=== PATIENT | female | born 1970 | race Caucasian/White ===

== ENCOUNTER 2019-03-27 20:00 | Outpatient (CLI) | payer OTHER, SELFPAY | END 2019-03-27 20:01 | disposition home or self-care (01) | LOC: SLEEP 03-28 12:02 | PROVIDERS: Family Provider Family Medicine; Visit Provider Family Medicine | DX: G47.33 Obstructive sleep apnea (adult) (pediatric) (principal) | CPT/HCPCS: 95810; 95811 ==

== ENCOUNTER 2019-07-15 12:29 | Emergency (ER) | payer SELFPAY ==
[2019-07-15 12:39] VITALS: BP 136/56; PULSE 81; RESP 14; TEMP 36.4; O2SAT 97; BMI 35.9
--- NOTE | 2019-07-15 13:26 | W.ED.ALLEREA ---
HPI - Allergic Reaction General: Chief complaint: Allergic Reaction Stated complaint: poss allergic reaction Time Seen by Provider: 07/15/19 13:17 History of Present Illness: HPI narrative: 49-year-old female with complaint of allergic reaction swelling in the right eye and rash on the left anterior side of the neck no difficulty breathing or swallowing this started about 3 to 4 days ago. She denies any difficulty breathing or swallowing she does not exactly know what she might have gotten into that triggered this. She has had similar reactions in the past. Associated symptoms: Deny abdominal pain, nausea or vomiting Review of Systems Const: Denies: fever, chills, body aches, change in appetite, fatigue or malaise ENMT: Denies: throat pain, ear pain, nasal discharge or nasal congestion Card: Denies: chest pain, edema, shortness of breath on exertion or shortness of breath when lying down Resp: Denies: shortness of breath, productive cough or non-productive cough GI: Denies: abdominal pain, nausea, vomiting, vomiting blood, coffee grounds in vomit, diarrhea, constipation, bloating, blood in stool or black tarry stool : Denies: flank pain, difficulty urinating, painful urination, urinary frequency or urinary urgency Skin/Breast: Denies: rash or itching PFSH ED PFSH: Social History Smoking and tobacco status: never smoked Alcohol intake: never Physical Exam Const: COMMON NORMALS: no apparent distress GENERAL APPEARANCE: cooperative and comfortable ORIENTATION/CONSCIOUSNESS: Yes awake, Yes oriented to person, Yes oriented to place and Yes oriented to time HENMT: COMMON NORMALS: normocephalic, head/scalp atraumatic, hearing grossly normal bilaterally, external ears normal, EAC's normal, TM's normal bilaterally, nasal mucous membranes and turbinates normal, moist oral mucous membranes and oropharynx normal HEAD & SCALP: normocephalic and atraumatic NOSE: nasal mucous membranes and turbinates normal EXTERNAL EAR: Yes external ears normal EXTERNAL AUDITORY CANAL: EAC's normal TYMPANIC MEMBRANE: TM's normal bilaterally Eye: COMMON NORMALS: PERRL, EOMs intact bilaterally, conjunctivae normal and no scleral icterus CONJUNCTIVA: Yes conjunctivae normal PUPIL: Yes PERRL Neck/C-Spine: COMMON NORMALS: full ROM, no lymphadenopathy, supple and no JVD Lymph: LYMPHATIC: no lymphadenopathy noted and no lymphedema noted Resp: COMMON NORMALS: normal respiratory effort, no retractions, no use of accessory muscles and clear to auscultation bilaterally AUSCULTATION: clear to auscultation bilaterally Cardio: COMMON NORMALS: no JVD, regular rate, regular rhythm and no murmurs RATE: regular rate RHYTHM: regular rhythm GI: COMMON NORMALS: soft to palpation and no hepatosplenomegaly AUSCULTATION: Yes normoactive bowel sounds PALPATION: Yes soft, No tender, No guarding and Yes no hepatosplenomegaly Extremity: COMMON NORMALS: normal to inspection, normal capillary refill, no clubbing, cyanosis or edema, no calf tenderness and no pedal edema Neuro: SENSORIUM/ORIENTATION: Yes oriented to person, Yes oriented to place and Yes oriented to time Skin: NARRATIVE SKIN EXAM: Moderate swelling of the right lower eyelid sclera conjunctiva clear there is no occlusion of the eyes she is able still to open it and see through it. There is a little bit of indurated rash with no vesicles on the left side of the neck anteriorly no other areas of skin rash. Course Vital Signs: Vital signs: Vital Signs Temperature 97.6 F 07/15/19 12:39 Pulse Rate 97 07/15/19 13:53 Respiratory Rate 17 07/15/19 13:53 Blood Pressure 152/74 07/15/19 13:53 Pulse Oximetry 98 07/15/19 13:53 MDM - Allergic Reaction MDM Narrative: Medical decision making narrative: Start oral steroid taper tomorrow hydroxyzine PRN follow-up as needed Discharge Plan Discharge Patient Disposition: Home, Self-Care Clinical Impression: Allergic reaction Condition: Stable Prescriptions: New Medrol (Jeffrey) 4 mg tablets,dose pack See Rx Instructions .ROUTE .COMPLEX Qty: 21 RF: 0 hydroxyzine HCl 25 mg tablet 25 mg PO Q8H PRN (Reason: itching) Qty: 14 RF: 0 No Action (DME) CPAP - AUTO TITRATING 5-9CM Qty: 1 RF: 0 levothyroxine 50 mcg capsule 50 mcg PO DAILY Qty: 30 RF: 0 omeprazole 20 mg capsule,delayed release(DR/EC) 20 mg PO DAILY Qty: 30 RF: 0 meloxicam 15 mg tablet 15 mg PO DAILY Qty: 30 RF: 0 citalopram [Celexa] 40 mg tablet 40 mg PO DAILY Qty: 30 RF: 0 gabapentin 300 mg capsule 300 mg PO TID Qty: 90 RF: 0 Discharge Orders: Discharge Order (Routine); Ordered 07/15/19 Ordered By: Akbar Valencia Referrals: Donna Peterson DO [Primary Care Provider] - Discharge Diet: Usual diet Discharge Activity: Increase activity as tolerated Discharge Date/Time: 07/15/19 13:58 Print Language: Kyrgyz Coding Level of Care Code ED Network Systems Integrator for Marvin Lee
[2019-07-15 13:53] VITALS: BP 152/74; PULSE 97; RESP 17; O2SAT 98
== END 2019-07-15 13:58 | disposition home or self-care (01) ==
PROVIDERS: Emergency Provider Family Medicine; PCP Family Medicine
DX: T78.40XA Allergy, unspecified, initial encounter (principal)
CPT/HCPCS: 12345; 96374; 99281; 99283; J2930

== ENCOUNTER 2020-09-03 12:28 | Emergency (ER) | payer SELFPAY ==
[2020-09-03 13:10] VITALS: BP 120/59; PULSE 101; RESP 18; TEMP 37.3; O2SAT 96; BMI 36.0
--- NOTE | 2020-09-03 13:18 | XRR_ITS ---
PROCEDURE INFORMATION: Exam: XR Chest Exam date and time: 09/03/2020 1:18 PM Age: 50 years old Clinical indication: Cough and shortness of breath; Patient HX: Covid precautions; Cp; Body aches; Sore throat; Additional info: Cough shortness of breath TECHNIQUE: Imaging protocol: XR of the chest. Views: 1 view. COMPARISON: [place] Chest 1 [place] [id number] 11/04/2018 3:10 PM FINDINGS: Lungs: No consolidation. 1 cm right upper lobe nodule. Pleural spaces: Unremarkable. No pleural effusion. No pneumothorax. Heart/Mediastinum: Unremarkable. No cardiomegaly. Bones/joints: No acute findings. XR/XR chest 1V portable [id number] IMPRESSION: 1 cm right upper lobe nodule, recommend follow-up chest CT.
[2020-09-03 13:37] VITALS: BP 109/59; PULSE 79; RESP 20; O2SAT 96
[2020-09-03] MEDS: sodium chloride 0.9% 1,000 ML 150 ML IV (13:49)
--- NOTE | 2020-09-03 14:02 | W.ED.COVID ---
HPI - COVID General: Chief Complaint: COVID symptoms Stated Complaint: covid symptoms Time Seen by Provider: 09/03/20 13:18 Triage information: Has fever, cough or shortness of breath. No known COVID + exposure last 14 days History of Present Illness: HPI Narrative: 50-year-old female presents emergency room complaining of cough for the last 4 days getting progressively worse decreased appetite headache myalgias back pain with nausea vomiting and some diarrhea. She denies any dysuria urgency or frequency low-grade fever. She has previously had her Covid vaccination. Prior covid testing: no COVID 19 common symptoms: positive fever(s), chills, cough, non-productive cough, dyspnea, fatigue, body aches, headache(s), nasal congestion, nausea, vomiting and diarrhea COVID 19 other sytmptoms: negative chest pain or requiring oxygen Pertinent comorbid conditions: obesity Treatment prior to arrival: none COVID Results: Nasal/Oral Coronavirus 2019 PCR Pending 09/03/20 13:25 09/03/20 Review of Systems Const: Reports: fever(s), chills, body aches and fatigue ENMT: Reports: nasal congestion Card: Denies: chest pain, edema or dyspnea on exertion Resp: Reports: dyspnea and non-productive cough GI: Reports: nausea, vomiting and diarrhea : Denies: flank pain, difficulty voiding, dysuria, urinary frequency or urinary urgency Skin/Breast: Denies: rash or pruritus Neuro: Reports: headache(s) [facility] ED PFSH: Medical History (Updated 09/03/20 @ 14:07 by Akbar Valencia DO) Chronic low back pain Depression Generalized convulsive epilepsy with intractable epilepsy Hypothyroid JOHANNA (obstructive sleep apnea) Other iron deficiency anemias Surgical History H/O: hysterectomy History of cholecystectomy History of thumb surgery History of tonsillectomy Family History Other Cancer Dementia Diabetes Hypertension Multiple sclerosis Stroke Thyroid disease Social History Smoking and tobacco status: never smoked Alcohol intake: never Physical Exam Const: COMMON NORMALS: no acute distress GENERAL APPEARANCE: cooperative and comfortable ORIENTATION/CONSCIOUSNESS: Yes awake, Yes oriented to person, Yes oriented to place and Yes oriented to time HENMT: COMMON NORMALS: normocephalic, atraumatic, hearing grossly normal bilaterally and external ears normal HEAD & SCALP: normocephalic and atraumatic EXTERNAL EAR: Yes external ears normal Neck/C-Spine: COMMON NORMALS: no JVD Resp: COMMON NORMALS: normal respiratory effort, No retractions, No use of accessory muscles and clear to auscultation bilaterally AUSCULTATION: clear to auscultation bilaterally Cardio: COMMON NORMALS: no JVD, regular rate, regular rhythm and No murmurs present (Cardio) RATE: regular rate RHYTHM: regular rhythm GI: COMMON NORMALS: Soft to palpation and No hepatosplenomegaly present AUSCULTATION: Yes normoactive bowel sounds PALPATION: Yes Soft to palpation, No Tenderness to palpation present (GI), No Guarding due to palpation present (GI) and Yes No hepatosplenomegaly present Extremity: COMMON NORMALS: normal to inspection, capillary refill normal, no clubbing, cyanosis or edema, no calf tenderness and no pedal edema Neuro: SENSORIUM/ORIENTATION: Yes oriented to person, Yes oriented to place and Yes oriented to time Skin: COMMON NORMALS: no rashes or lesions noted GENERAL SKIN EXAM: no rashes or lesions noted Course Vital Signs: Vital signs: Vital Signs Temperature 99.2 F 09/03/20 13:10 Pulse Rate 79 09/03/20 13:37 Respiratory Rate 20 H 09/03/20 13:37 Blood Pressure 109/59 09/03/20 13:37 Pulse Oximetry 96 09/03/20 13:37 MDM - COVID MDM Narrative: Medical decision making narrative: Focal symptoms of Covid. Patient was immunized she did complete her last immunization approximately 6 weeks ago. Still suspect she may have Covid she is very mildly symptomatic. She is given IV fluids here and is feeling somewhat better. We will go ahead and discharge her home supportive cares self monitor oxygen saturations maintains a quarantine until results are back. Discussed monoclonal antibodies with her she does wish to proceed with those if she were to test positive. COVID Results: Nasal/Oral Coronavirus 2019 PCR Pending 09/03/20 13:25 09/03/20 Discharge Plan Discharge Patient Disposition: Home Clinical Impression: Viral infection Condition: Stable Prescriptions: No Action (DME) CPAP - AUTO TITRATING 5-9CM Qty: 1 RF: 0 omeprazole 20 mg capsule,delayed release(DR/EC) 20 mg PO DAILY Qty: 30 RF: 0 meloxicam 15 mg tablet 15 mg PO DAILY Qty: 30 RF: 0 citalopram [Celexa] 40 mg tablet 40 mg PO DAILY Qty: 30 RF: 0 gabapentin 300 mg capsule 300 mg PO TID Qty: 90 RF: 0 levothyroxine 50 mcg capsule 50 mcg PO DAILY Qty: 14 RF: 0 Medrol (Jeffrey) 4 mg tablets,dose pack See Rx Instructions .ROUTE .COMPLEX Qty: 21 RF: 0 hydroxyzine HCl 25 mg tablet 25 mg PO Q8H PRN (Reason: itching) Qty: 14 RF: 0 Discharge Orders: Discharge ED (Routine); Ordered 09/03/20 Ordered By: Akbar Valencia Referrals: Donna Peterson DO [Primary Care Provider] - Discharge Diet: Usual diet Discharge Activity: Resume usual activity Patient Instructions: Opioid Safety Activity Restrictions/Additional Instructions: Maintain self quarantine until Covid results return. Coding Level of Care Code ED Pet Walker for Chg Fwd Exam Comprehensive
[2020-09-03 14:20] VITALS: BP 120/70; PULSE 87; RESP 16; O2SAT 96
[2020-09-04 13:53] LABS: Coronavirus Test Green County Not Detected
--- NOTE | 2020-09-05 14:14 | PC.NURSE ---
pt notified of negative COVID results at 0840
== END 2020-09-03 14:21 | disposition home or self-care (01) ==
PROVIDERS: Emergency Provider Family Medicine; PCP Family Medicine
DX: B34.9 Viral infection, unspecified (principal); Z20.822 Contact with and (suspected) exposure to COVID-19
CPT/HCPCS: 71045; 87635; 99283; J7030

== ENCOUNTER 2021-01-15 13:55 | Emergency (ER) | payer SELFPAY ==
[2021-01-15 14:09] VITALS: BP 131/69; PULSE 65; RESP 18; TEMP 37.1; O2SAT 97; BMI 34.1
--- NOTE | 2021-01-15 14:15 | ECG_ITS ---
[facility] Test Date: 2021-01-15 Pat Name: Jodi Santos Department: Room: Gender: Female [employer]: : 1970 Requested By: Akbar Hicks Order Number: [id number] Zoran MD: Julisa Velez M.D. Measurements Intervals [place] Rate: 75 P: 41 AR: 157 QRS: -15 QRSD: 82 T: 54 QT: 375 QTc: 419 Interpretive Statements SINUS RHYTHM WITH OCCASIONAL VENTRICULAR PREMATURE COMPLEXES LOW QRS VOLTAGE IN PRECORDIAL LEADS [QRS DEFLECTION < 1.0 mV IN CHEST LEADS] POSSIBLE ANTERIOR MYOCARDIAL INFARCTION , PROBABLY OLD [30 ms Q WAVE IN V3/V4, OR R < 0.2 mV IN V4] Compared to ECG 11/04/2018 14:58:42 Ventricular premature complex(es) now present Myocardial infarct finding now present Electronically Signed On 01-15-2021 20:43:43 ANALYTICAL CHEMISTRY TEACHER by Julisa Velez M.D. [id number]
--- NOTE | 2021-01-15 14:15 | XR_ITS ---
WS: [id number] Portable AP upright chest, 01/15/2021 Clinical Data: chest pain Comparison: Portable chest, 09/03/2020. Findings: No masses or effusions are seen. There is a 1.0 right upper lobe nodule between the right s ixth and seventh rib interspace. The heart is normal. The pulmonary vascularity is not increased. No pneumonia or pneumothorax is seen. XR/XR chest 1V portable [id number] Impression: 1. Right upper lobe 1.0 cm nodule. 2. Recommend CT scan of the chest.
--- NOTE | 2021-01-15 16:11 | W.ED.CHESTPA ---
HPI - Chest Pain General: Chief Complaint: Chest Pain Stated Complaint: CHEST PAINS: STATES THINKS HAS PNEUMONIA Time Seen by Provider: 01/15/21 16:11 History of Present Illness: HPI narrative: Ms. Santos is a 50-year-old lady without significant medical history presents emerged department due to shortness of breath. Symptom onset was approximately 2 weeks ago initially with intermittent symptoms that have now become more consistent. She endorses mild to moderate intensity shortness of breath which is worse with exertion, some chest discomfort at times, and generalized malaise. Overall the course of symptoms has been worsening. No other specific exacerbating or alleviating factors identified. Review of Systems General: Reports: 10 or more systems reviewed and unremarkable except in HPI and below PFSH ED PFSH: Medical History (Updated 01/15/21 @ 19:54 by Gatito Contreras MD) Chronic low back pain Depression Generalized convulsive epilepsy with intractable epilepsy Hypothyroid JOHANNA (obstructive sleep apnea) Other iron deficiency anemias Surgical History H/O: hysterectomy History of cholecystectomy History of thumb surgery History of tonsillectomy Family History Other Cancer Dementia Diabetes Hypertension Multiple sclerosis Stroke Thyroid disease Social History Smoking and tobacco status: never smoked Alcohol intake: never Physical Exam Narrative: EXAM NARRATIVE: GENERAL/CONSTITUTIONAL -mildly ill-appearing. No acute distress. Obese Eyes - PERRL, no conjunctival injection ENMT - Atraumatic external nose and ears. Moist mucous membranes NECK - supple. trachea midline CARDIOVASCULAR - regular rate and rhythm. Peripheral pulses 2+ and equal RESPIRATORY -clear to auscultation bilaterally. No retractions or accessory muscle use. ABDOMEN/GI - Nontender/Nondistended. MSK - Extremities without obvious deformity or tenderness to palpation SKIN - Warm, Dry NEURO - alert and appropriately oriented. Moves all extremities equally. Course ED course: - Patient was seen and evaluated by me at bedside - Patient placed on cardiac monitors, IV access obtained - Initial evaluation notable for mildly ill appearance, no acute distress. - Labs notable for no significant hematologic or metabolic abnormality. - Imaging notable for abnormal nodule identified on x-ray with CT chest recommended. CT negative for acute pathology. Patient notified of incidental thyroid nodule and recommended follow-up. - Upon serial reexamination after treatment the patient was improved - Based on patient history, evaluation, labs, and imaging as interpreted the most likely cause of the patient's condition is unclear, low risk by heart score, may be viral in nature - The results of ED evaluation were discussed with the patient including prescriptions and/or symptomatic cares (if applicable) including appropriate and responsible use, followup plan, and return precautions. The patient verbalized understanding and felt safe for discharge. - Patient discharged in satisfactory condition. Vital Signs: Vital signs: Vital Signs Temperature 98.7 F 01/15/21 16:28 Pulse Rate 88 01/15/21 20:34 Respiratory Rate 18 01/15/21 20:34 Blood Pressure 130/74 01/15/21 20:34 Pulse Oximetry 100 01/15/21 20:34 MDM - Chest Pain Medical Records: Attestation: I reviewed the patient's medical records. Lab Data: Attestation: I reviewed the patient's lab results. Labs: Lab Results 01/15/21 01/15/21 01/15/21 16:30 16:30 16:30 WBC 7.5 10^3/uL 10^3/ uL (4.0-10.0) RBC 4.54 10^6/uL 10^6 /uL (4.1-5.3) Hgb 13.3 g/dL g/dL (11.5-15.3) Hct 40.4 % % (37.0-47.0) MCV 89.0 fl fl (81-99) MCH 29.3 pg pg (28.0-34.0) MCHC 32.9 g/dL g/dL (30.0-36.0) RDW 12.5 % % (12.1-15.1) Plt Count 187 10^3/cmm 10^3 /cmm (130-400) MPV 11.4 fL H fL (7.4-10.4) Neut % (Auto) 45.5 % % Lymph % (Auto) 44.2 % % [place] % (Auto) 6.1 % % Eos % (Auto) 3.3 % % Baso % (Auto) 0.8 % % Neut # (Auto) 3.41 10^3/uL 10^3 /uL (1.8-7.7) Lymph # (Auto) 3.3 10^3/uL 10^3/ uL (0.8-4.8) [place] # (Auto) 0.5 10^3/uL 10^3/ uL (0.2-0.9) Eos # (Auto) 0.3 10^3/uL 10^3/ uL (0.0-0.8) Baso # (Auto) 0.1 10^3/uL 10^3/ uL (0.0-0.1) Nucleated RBC % (a uto) 0 % % Nucleated RBCs # 0.0 /100WBC /100W BC Sodium 138 mmol/L mmol/L (136-145) Potassium 3.9 mmol/L mmol/L (3.5-5.1) Chloride 102 mmol/L mmol/L (98-107) Carbon Dioxide 26 mmol/L mmol/L (22-29) Anion Gap 13.9 (5-19) BUN 11 mg/dL mg/dL (6-20) Creatinine 0.6 mg/dL mg/dL (0.5-0.9) GFR Calculation 106.3 mL/min mL/m in (90-130) Glucose 100 mg/dL mg/dL (65-115) Calculated Osmolal ity 285 mOsm/kg mOsm/ kg (285-295) Calcium 9.1 mg/dL mg/dL (8.5-10.5) Magnesium Total Bilirubin 0.3 mg/dL mg/dL (0.15-1.2) AST 13 U/L U/L (0-32) ALT 13 U/L U/L (0-33) Alkaline Phosphata se 65 IU/L IU/L (35-105) Troponin T Baselin e 17 ng/L H ng/L (0-10) Troponin T 120 Min [place] Troponin T Total Protein 6.8 g/dL g/dL (6.6-8.7) Albumin 4.0 g/dL g/dL (3.5-5.2) Globulin 2.8 g/dL g/dL (1.3-4.6) Lipase TSH HCG, Qual Urine Color Urine Appearance Urine pH Ur Specific Gravit y Urine Protein Urine Glucose (UA) Urine Ketones Urine Blood Urine Nitrate Urine Bilirubin Urine Urobilinogen Ur Leukocyte Janny ase 01/15/21 01/15/2101/15/21 16:30 16:30 16:38 WBC RBC Hgb Hct MCV MCH MCHC RDW Plt Count MPV Neut % (Auto) Lymph % (Auto) [place] % (Auto) Eos % (Auto) Baso % (Auto) Neut # (Auto) Lymph # (Auto) [place] # (Auto) Eos # (Auto) Baso # (Auto) Nucleated RBC % (a uto) Nucleated RBCs # Sodium Potassium Chloride Carbon Dioxide Anion Gap BUN Creatinine GFR Calculation Glucose Calculated Osmolal ity Calcium Magnesium 2.0 mg/dL mg/dL (1.7-2.3) Total Bilirubin AST ALT Alkaline Phosphata se Troponin T Baselin e Troponin T 120 Min [place] Troponin T Total Protein Albumin Globulin Lipase 11 U/L L U/L (13-60) TSH 2.65 uIU/mL uIU/m L (0.27-4.20) HCG, Qual Negative (Negative) Urine Color Urine Appearance Urine pH Ur Specific Gravit y Urine Protein Urine Glucose (UA) Urine Ketones Urine Blood Urine Nitrate Urine Bilirubin Urine Urobilinogen Ur Leukocyte Janny ase 01/15/21 01/15/21 16:38 19:12 WBC RBC Hgb Hct MCV MCH MCHC RDW Plt Count MPV Neut % (Auto) Lymph % (Auto) [place] % (Auto) Eos % (Auto) Baso % (Auto) Neut # (Auto) Lymph # (Auto) [place] # (Auto) Eos # (Auto) Baso # (Auto) Nucleated RBC % (a uto) Nucleated RBCs # Sodium Potassium Chloride Carbon Dioxide Anion Gap BUN Creatinine GFR Calculation Glucose Calculated Osmolal ity Calcium Magnesium Total Bilirubin AST ALT Alkaline Phosphata se Troponin T Baselin e Troponin T 120 Min [place] 17.72 ng/L H ng/L (0-10) Delta Troponin T 0.72 ABS# ABS# (0-10) Total Protein Albumin Globulin Lipase TSH HCG, Qual Urine Color Yellow (Yellow) Urine Appearance Clear (CLEAR) Urine pH 6.5 (5-7) Ur Specific Gravit y 1.015 (1.005-1.030) Urine Protein Neg (Negative) Urine Glucose (UA) Norm (Normal) Urine Ketones Negative (Negative) Urine Blood Neg (Negative) Urine Nitrate Negative (Negative) Urine Bilirubin Neg (Negative) Urine Urobilinogen Norm mg/dL mg/dL (Negative) Ur Leukocyte Janny ase Negative (Negative) EKG Data^: EKG 1: Attestation: I personally reviewed and interpreted this EKG as follows: EKG interpretation date: 01/15/21 EKG interpretation time: 14:22 Interpretation: Twelve-lead EKG shows a regular rhythm at a rate of 75. MS interval 157, QRS duration 82, QTc 403. Left axis deviation. Interpretation: Sinus rhythm. EKG 2: Attestation: I personally reviewed and interpreted this EKG as follows: EKG interpretation date: 01/15/21 EKG interpretation time: 16:38 Interpretation: Twelve-lead EKG shows a regular rhythm at a rate of 78. MS interval 167, QRS duration 77, QTc 391. Left axis deviation. Interpretation: Sinus rhythm. Frequent PVCs. EKG 3: Attestation: I personally reviewed and interpreted this EKG as follows: EKG interpretation date: 01/15/21 EKG interpretation time: 19:59 Interpretation: Twelve-lead EKG shows a regular rhythm at a rate of 69. MS interval 160, QRS duration 71, QTc 4 5. Left axis deviation. Interpretation: Sinus rhythm. Frequent PVCs. Discharge Plan Discharge Patient Disposition: Home Clinical Impression: Chest pain, Shortness of breath Condition: Stable Prescriptions: No Action (DME) CPAP - AUTO TITRATING 5-9CM Qty: 1 RF: 0 omeprazole 20 mg capsule,delayed release(DR/EC) 20 mg PO DAILY Qty: 30 RF: 0 meloxicam 15 mg tablet 15 mg PO DAILY Qty: 30 RF: 0 citalopram [Celexa] 40 mg tablet 40 mg PO DAILY Qty: 30 RF: 0 gabapentin 300 mg capsule 300 mg PO TID Qty: 90 RF: 0 levothyroxine 50 mcg capsule 50 mcg PO DAILY Qty: 14 RF: 0 Medrol (Jeffrey) 4 mg tablets,dose pack See Rx Instructions .ROUTE .COMPLEX Qty: 21 RF: 0 hydroxyzine HCl 25 mg tablet 25 mg PO Q8H PRN (Reason: itching) Qty: 14 RF: 0 Discharge Orders: Discharge ED (Routine); Ordered 01/15/21 Ordered By: Gatito Contreras Discharge Diet: Usual diet Discharge Activity: Resume usual activity Patient Instructions: Chest Pain (ED), Shortness of Breath (ED) Activity Restrictions/Additional Instructions: Thank you for visiting the emergency department. You were seen and evaluated for chest pain or shortness of breath. The exact cause of your symptoms is unclear as no significant finding was identified on laboratory or imaging studies. You did have a abnormal finding on her chest x-ray which was better characterized on CT scan which was obtained based on radiology recommendations, this is just a calcification and does not require further evaluation. As an incidental finding you were noted to have a right thyroid nodule, further evaluation with non urgent thyroid ultrasound suggested. You were also noted to have enlarged lymph nodes, this may be related to infection or inflammation which may correlate with your symptoms. Please follow-up with your primary care provider regarding both these findings for physical exam and/or imaging to ensure resolution. Please return to the emergency department for anything that you are concerned about and feel needs emergency department evaluation. Coding Level of Care Code ED Hoop Expander for Marvin Lee
--- NOTE | 2021-01-15 16:15 | ECG_ITS ---
[facility] Test Date: 2021-01-15 Pat Name: Jodi Santos Department: Room: Gender: Female Patient Care Representative: : 1970 Requested By: Corinna San Order Number: [id number] Zoran MD: Julisa Velez M.D. Measurements Intervals [place] Rate: 78 P: 49 VT: 169 QRS: -8 QRSD: 77 T: 50 QT: 358 QTc: 409 Interpretive Statements SINUS RHYTHM WITH FREQUENT VENTRICULAR PREMATURE COMPLEXES LOW QRS VOLTAGE IN PRECORDIAL LEADS [QRS DEFLECTION < 1.0 mV IN CHEST LEADS] ABNORMAL RHYTHM ECG Compared to ECG 01/15/2021 14:19:42 Myocardial infarct finding no longer present Electronically Signed On 01-15-2021 20:51:46 PAN WASHER by Julisa Velez M.D. [id number]
--- NOTE | 2021-01-15 16:21 | CTR_ITS ---
PROCEDURE INFORMATION: Exam: CT Chest Without Contrast; Diagnostic Exam date and time: 01/15/2021 4:21 PM Age: 50 years old Clinical indication: Abnormal findings; Abnormal radiologic exam of lung or chest; Additional info: Abnormal chest XR TECHNIQUE: Imaging protocol: Diagnostic computed tomography of the chest without contrast. Radiation optimization: All CT scans at this facility use at least one of these dose optimization techniques: automated exposure control; mA and/or kV adjustment per patient size (includes targeted exams where dose is matched to clinical indication); or iterative reconstruction. COMPARISON: CR XR chest 1V portable [id number] 09/03/2020 1:40 PM RADIATION DOSE METRICS: Total DLP (mGy-cm): 999.76 FINDINGS: Thyroid: There is 2 cm sized nodule in the lower pole of the right lobe of the thyroid. Further evaluation with thyroid ultrasound recommended. Lungs: Are there is a calcified granuloma in the right upper lobe which corresponds with the nodule seen on the recent chest radiograph. Lungs are otherwise clear. Pleural spaces: Unremarkable. No pneumothorax. No pleural effusion. Heart: Unremarkable. No cardiomegaly. No pericardial effusion. Mediastinal space: There is no evidence of mediastinal fluid, masses, or gas. Aorta: Unremarkable. No aortic aneurysm. Lymph nodes: There are mildly prominent left axillary nodes measuring up to 11 x 17 mm. Correlation with physical examination findings is suggested. There are calcified right hilar and mediastinal lymph nodes in keeping with old granulomatous disease. Bones/joints: Unremarkable. No acute fracture. Soft tissues: Unremarkable. CT/CT chest wo con [id number] IMPRESSION: 1. Right upper lobe granuloma corresponding with the nodule on the recent chest radiographs. 2. Right thyroid nodule, further evaluation with non urgent thyroid ultrasound suggested. 3. Borderline lymph nodes in the left axillary region. COMMENTS: Consistent with the [employer]'s Incidental Findings Committee white paper (J Am Davis Radiol 2015): In patients aged 35 years and older with an incidental thyroid nodule equal to or greater than 1.[address], MRI or extrathyroidal US, further evaluation with dedicated thyroid US is recommended for patients with normal life expectancy and without comorbidities. For smaller nodules without suspicious features, no further evaluation or follow up is recommended. Radiation Dose CTDIVOL = (mGy): DLP = 999.76 (mGy-cm)
[2021-01-15 16:28] VITALS: BP 105/62; PULSE 84; RESP 18; TEMP 37.1; O2SAT 100
[2021-01-15 16:39] LABS: Basophils # 0.1 10^3/uL (0.0-0.1); Basophils % 0.8 %; Eosinophils # 0.3 10^3/uL (0.0-0.8); Eosinophils % 3.3 %; Hematocrit 40.4 % (37.0-47.0); Hemoglobin 13.3 g/dL (11.5-15.3); Lymphocytes # 3.3 10^3/uL (0.8-4.8); Lymphocytes % 44.2 %; Mean Corpuscular HGB Conc 32.9 g/dL (30.0-36.0); Mean Corpuscular Hemoglobin 29.3 pg (28.0-34.0); Mean Platelet Volume 11.4 fL (7.4-10.4); Monocytes # 0.5 10^3/uL (0.2-0.9); Monocytes % 6.1 %; Neutrophils # 3.41 10^3/uL (1.8-7.7); Neutrophils % 45.5 %; Nucleated Red Blood Cells % 0 %; Platelet Count 187 10^3/cmm (130-400); Red Blood Count 4.54 10^6/uL (4.1-5.3); Red Cell Distribution Width 12.5 % (12.1-15.1); White Blood Count 7.5 10^3/uL (4.0-10.0)
[2021-01-15 16:57] LABS: HCG Qualitative Urine. Negative (Negative)
[2021-01-15 16:59] LABS: Troponin(5th) Baseline 17 ng/L (0-10)
[2021-01-15 17:01] LABS: Alanine Aminotransferase 13 U/L (0-33); Alkaline Phosphatase 65 IU/L (35-105); Anion Gap 13.9 (5-19); Aspartate Amino Transferase 13 U/L (0-32); Blood Urea Nitrogen 11 mg/dL (6-20); Calcium 9.1 mg/dL (8.5-10.5); Carbon Dioxide 26 mmol/L (22-29); Chloride 102 mmol/L (98-107); Globulin 2.8 g/dL (1.3-4.6); Glomerular Filtration Rate 106.3 mL/min (90-130); Glucose 100 mg/dL (65-115); Osmolality Calculated 285 mOsm/kg (285-295); Potassium 3.9 mmol/L (3.5-5.1); Sodium 138 mmol/L (136-145); Total Bilirubin 0.3 mg/dL (0.15-1.2); Total Protein 6.8 g/dL (6.6-8.7)
[2021-01-15 17:16] LABS: Lipase 11 U/L (13-60)
[2021-01-15 17:46] LABS: Thyroid Stimulating Hormone 2.65 uIU/mL (0.27-4.20)
[2021-01-15 18:10] LABS: Add Urine Microscopic? NO; Charge for UA Resulting for Rev
[2021-01-15 18:17] LABS: Bilirubin Urine Neg (Negative); Blood Urine Neg (Negative); Glucose Urine UA Norm (Normal); Ketones Urine Negative (Negative); Leukocyte Esterase Urine Negative (Negative); Nitrate Urine Negative (Negative); Protein Urine Neg (Negative); Specific Gravity, Urine 1.015 (1.005-1.030); Urine Appearance Clear (CLEAR); Urine Color Yellow (Yellow); Urobilinogen Urine Norm (Negative); pH Urine 6.5 (5-7)
--- NOTE | 2021-01-15 19:07 | PC.NURSE ---
Unable to get IV access. Provider notified.
[2021-01-15 19:08] VITALS: PULSE 75; RESP 16; O2SAT 100
[2021-01-15 19:42] LABS: Troponin 5 2HR 17.72 ng/L (0-10); Troponin 5 2HR Delta 0.72 ABS# (0-10)
--- NOTE | 2021-01-15 20:15 | ECG_ITS ---
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 Measurements Intervals [place] Rate: 69 P: 41 ND: 160 QRS: -2 QRSD: 71 T: 37 QT: 386 QTc: 415 Interpretive Statements SINUS RHYTHM WITH FREQUENT VENTRICULAR PREMATURE COMPLEXES LOW QRS VOLTAGE IN PRECORDIAL LEADS [QRS DEFLECTION < 1.0 mV IN CHEST LEADS] ABNORMAL RHYTHM ECG Compared to ECG 01/15/2021 16:35:57 No significant changes Electronically Signed On 01-15-2021 20:52:01 GLASS TUBE BENDER by Julisa Velez M.D. [email or web address] regional medical centerGeoCitiesaultman [facility].Fivejack/store/[id number]
[2021-01-15 20:34] VITALS: BP 130/74; PULSE 88; RESP 18; O2SAT 100
== END 2021-01-15 20:37 | disposition home or self-care (01) ==
PROVIDERS: Physician Assistant; Emergency Provider Emergency Medicine
DX: R07.9 Chest pain, unspecified (principal); R06.02 Shortness of breath; E03.9 Hypothyroidism, unspecified; F32.A Depression, unspecified; G40.409 Other generalized epilepsy and epileptic syndromes, not intractable, without status epilepticus
CPT/HCPCS: 36415; 71045; 71250; 80053; 81003; 81025; 83690; 83735; 84443; 84484; 85025; 93005; 99283

== ENCOUNTER 2021-11-03 16:09 | Emergency (ER) | payer MEDICAID, SELFPAY ==
[2021-11-03 16:26] VITALS: BP 143/75; PULSE 66; RESP 16; TEMP 36.8; O2SAT 97; BMI 38.6
--- NOTE | 2021-11-03 16:29 | ECG_ITS ---
[facility] Test Date: 2021-11-03 Pat Name: Jodi Santos Department: Room: Gender: Female Multimedia Artist: : 1970 Requested By: Akbar Hicks Order Number: [id number] Zoran MD: Paul Meneses M.D. Measurements Intervals [place] Rate: 93 P: 36 IN: 152 QRS: -26 QRSD: 90 T: 59 QT: 354 QTc: 442 Interpretive Statements SINUS RHYTHM WITH FREQUENT VENTRICULAR PREMATURE COMPLEXES LOW QRS VOLTAGE IN PRECORDIAL LEADS [QRS DEFLECTION < 1.0 mV IN CHEST LEADS] MODERATE VOLTAGE CRITERIA FOR LVH, CONSIDER NORMAL VARIANT [MEETS CRITERIA IN ONE OF: R(aVL), S(V1), R(V5), R(V5/V6)+S(V1)] POSSIBLE ANTERIOR MYOCARDIAL INFARCTION , PROBABLY OLD [30 ms Q WAVE IN V3/V4, OR R < 0.2 mV IN V4] Compared to ECG 01/15/2021 19:58:42 Myocardial infarct finding now present Electronically Signed On 11-04-2021 16:28:22 CDT by Paul Meneses M.D. [email or web address] behavioral healthSynthesys Researchbet[facility].Star[employer] Storage [employer]/store/NU/[id number]
--- NOTE | 2021-11-03 16:30 | XR_ITS ---
WS: [id number] Exam: XR chest 1V [id number] Date/Time of Exam: 11/03/2021 7:04 PM Reason For Exam: CHEST PAIN Comparison 01/15/2021. The lungs are fully inflated. No infiltrates. Normal cardiomediastinal silhouette. Regional bony king salmon ents appear normal. No pleural effusion. Previously noted 1 cm nodule in the right upper lobe is obsc ured by an EKG lead. XR/XR chest 1V [id number] IMPRESSION: 1. No acute cardiopulmonary finding.
[2021-11-03 18:06] LABS: Basophils % 0.5 %; Eosinophils # 0.3 10^3/uL (0.0-0.8); Eosinophils % 3.5 %; Hematocrit 38.7 % (37.0-47.0); Hemoglobin 12.8 g/dL (11.5-15.3); Lymphocytes # 3.7 10^3/uL (0.8-4.8); Lymphocytes % 50.7 %; Mean Corpuscular HGB Conc 33.1 g/dL (30.0-36.0); Mean Corpuscular Volume 87.6 fl (81-99); Mean Platelet Volume 10.6 fL (7.4-10.4); Monocytes # 0.5 10^3/uL (0.2-0.9); Monocytes % 6.8 %; Neutrophils # 2.81 10^3/uL (1.8-7.7); Neutrophils % 38.4 %; Nucleated Red Blood Cells % 0 %; Platelet Count 178 10^3/cmm (130-400); Red Blood Count 4.42 10^6/uL (4.1-5.3); White Blood Count 7.3 10^3/uL (4.0-10.0)
[2021-11-03 18:26] LABS: Alanine Aminotransferase 28 U/L (0-33); Albumin Level 4.2 g/dL (3.5-5.2); Alkaline Phosphatase 69 U/L (35-105); Anion Gap 14.9 (5-19); Aspartate Amino Transferase 26 U/L (0-32); Blood Urea Nitrogen 9 mg/dL (6-20); Calcium 9.1 mg/dL (8.5-10.5); Carbon Dioxide 29 mmol/L (22-29); Chloride 99 mmol/L (98-107); Globulin 2.4 g/dL (1.3-4.6); Glomerular Filtration Rate 75.9 mL/min (90-130); Glucose 95 mg/dL (65-115); Osmolality Calculated 286 mOsm/kg (285-295); Potassium 3.9 mmol/L (3.5-5.1); Sodium 139 mmol/L (136-145); Total Bilirubin 0.4 mg/dL (0.15-1.2); Total Protein 6.6 g/dL (6.6-8.7)
[2021-11-03 18:27] LABS: Troponin(5th) Baseline 21 ng/L (0-10)
[2021-11-03 19:09] VITALS: BP 124/71; PULSE 64; RESP 16
--- NOTE | 2021-11-03 19:15 | ECG_ITS ---
[facility] Test Date: 2021-11-03 Pat Name: Jodi Santos Department: Room: Gender: Female Retirement Village Manager: : 1970 Requested By: Akbar Hicks Order Number: [id number] Zoran MD: Paul Meneses M.D. Measurements Intervals [place] Rate: 75 P: 43 HI: 155 QRS: -19 QRSD: 93 T: 44 QT: 400 QTc: 447 Interpretive Statements SINUS RHYTHM WITH FREQUENT VENTRICULAR PREMATURE COMPLEXES LOW QRS VOLTAGE IN PRECORDIAL LEADS [QRS DEFLECTION < 1.0 mV IN CHEST LEADS] Compared to ECG 11/03/2021 16:29:49 Myocardial infarct finding no longer present Electronically Signed On 11-04-2021 16:34:06 CDT by Paul Meneses M.D. [id number]
--- NOTE | 2021-11-03 19:25 | ED_ITS ---
HPI - Chest Pain General: Chief Complaint: Chest Pain Stated Complaint: chest pain, ear and throat pain Time Seen by Provider: 11/03/21 19:05 Source: patient Mode of arrival: ambulatory Limitations: no limitations History of Present Illness: 51-year-old female states she been having chest pain for a month. States has been intermittent and sharp in her left chest that she had a slight cough. She denies any shortness of breath or fever. States she had the pain today sharp currently a 3 out of 10 she denies any worsening improving factors denies any history of heart disease. Associated symptoms: Deny abdominal pain, dyspnea, fever(s), nausea or vomiting Review of Systems Const: Denies: fever(s), chills, body aches or change in appetite Eyes: Denies: blurry vision or eye discomfort ENMT: Denies: throat pain or dental pain Card: Reports: chest pain Resp: Denies: dyspnea GI: Denies: abdominal pain, nausea, vomiting or diarrhea : Denies: dysuria Musc: Denies: neck pain or back pain Skin/Breast: Denies: rash Neuro: Denies: headache(s) Psych: Denies: depression Cristian/Lymph: Denies: easy bruising All/Imm: Denies: urticaria PFSH ED PFSH: Medical History (Updated 11/03/21 @ 21:18 by Armando Abad MD) Chronic low back pain Depression Generalized convulsive epilepsy with intractable epilepsy Hypothyroid JOHANNA (obstructive sleep apnea) Other iron deficiency anemias Surgical History H/O: hysterectomy History of cholecystectomy History of thumb surgery History of tonsillectomy Family History Other Cancer Dementia Diabetes Hypertension Multiple sclerosis Stroke Thyroid disease Social History Smoking and tobacco status: never smoked Alcohol intake: never Physical Exam Const: COMMON NORMALS: no acute distress, patient oriented x3 and healthy tate earing HENMT: COMMON NORMALS: normocephalic and atraumatic HEAD & SCALP: normocephalic and atraumatic Eye: COMMON NORMALS: Equal, round and reactive pupils present and EOMs intact bilaterally PUPIL: Yes Equal, round and reactive pupils present Neck/C-Spine: COMMON NORMALS: full ROM and supple Chest: COMMONS NORMALS: normal inspection of the chest and normal palpation of entire chest wall Resp: COMMON NORMALS: normal respiratory effort, No retractions, No use of accessory muscles and clear to auscultation bilaterally AUSCULTATION: clear to auscultation bilaterally Cardio: COMMON NORMALS: regular rate, regular rhythm and No murmurs present (Cardio) RATE: regular rate RHYTHM: regular rhythm GI: COMMON NORMALS: Normal to inspection, nondistended, normoactive bowel sounds present, Soft to palpation, non-tender and no masses PALPATION: Yes Soft to palpation Extremity: COMMON NORMALS: normal to inspection and full ROM Neuro: COMMON NORMALS: patient oriented x3, moves all extremities and no focal motor deficits Psych: COMMON NORMALS: mental status grossly normal, Normal thought process present and cooperative THOUGHT PROCESS: Normal thought process present Skin: COMMON NORMALS: no rashes or lesions noted and no wounds GENERAL SKIN EXAM: no rashes or lesions noted Course Vital Signs: Vital signs: Vital Signs Temperature 98.3 F 11/03/21 16:26 Pulse Rate 64 11/03/21 19:09 Respiratory Rate 16 11/03/21 19:09 Blood Pressure 124/71 11/03/21 19:09 Pulse Oximetry 97 11/03/21 16:26 MDM - Chest Pain Medical Decision Making Patient presents here with chest pain that is atypical in nature patient's initial and repeat troponin are normal she is well-appearing her pain is improved she has no signs of acute coronary syndrome or pulm embolism she is stable for discharge she is to follow-up with PCP and return if worsening. Lab Data : 11/03/21 18:01 11/03/21 18:01 Laboratory Results WBC 7.3 10^3/uL (4.0-10.0) 11/03/21 18:01 RBC 4.42 10^6/uL (4.1-5.3) 11/03/21 18:01 Hgb 12.8 g/dL (11.5-15.3) 11/03/21 18:01 Hct 38.7 % (37.0-47.0) 11/03/21 18:01 MCV 87.6 fl (81-99) 11/03/21 18:01 MCH 29.0 pg (28.0-34.0) 11/03/21 18:01 MCHC 33.1 g/dL (30.0-36.0) 11/03/21 18: RDW 13.0 % (12.1-15.1) 11/03/21 18:01 Plt Count 178 10^3/cmm (130-400) 11/03/21 18:01 MPV 10.6 fL (7.4-10.4) H 11/03/21 18: Neut % (Auto) 38.4 % 11/03/21 18: Lymph % (Auto) 50.7 % 11/03/21 18:01 [place] % (Auto) 6.8 % 11/03/21 18:01 Eos % (Auto) 3.5 % 11/03/21 18: Baso % (Auto) 0.5 % 11/03/21 18:01 Neut # (Auto) 2.81 10^3/uL (1.8-7.7) 11/03/21 18: Lymph # (Auto) 3.7 10^3/uL (0.8-4.8) 11/03/21 18:01 [place] # (Auto) 0.5 10^3/uL (0.2-0.9) 11/03/21 18:01 Eos # (Auto) 0.3 10^3/uL (0.0-0.8) 11/03/21 18:01 Baso # (Auto) 0.0 10^3/uL (0.0-0.1) 11/03/21 18: Nucleated RBC % (auto) 0 % 11/03/21 18: Nucleated RBCs # 0.0 /100WBC 11/03/21 18:01 Sodium 139 mmol/L (136-145) 11/03/21 18:01 Potassium 3.9 mmol/L (3.5-5.1) 11/03/21 18:01 Chloride 99 mmol/L (98-107) 11/03/21 18:01 Carbon Dioxide 29 mmol/L (22-29) 11/03/21 18:01 Anion Gap 14.9 (5-19) 11/03/21 18:01 BUN 9 mg/dL (6-20) 11/03/21 18: Creatinine 0.8 mg/dL (0.5-0.9) 11/03/21 18:01 GFR Calculation 75.9 mL/min (90-130) L 11/03/21 18:01 Glucose 95 mg/dL (65-115) 11/03/21 18:01 Calculated Osmolality 286 mOsm/kg (285-295) 11/03/21 18:01 Calcium 9.1 mg/dL (8.5-10.5) 11/03/21 18:01 Total Bilirubin 0.4 mg/dL (0.15-1.2) 11/03/21 18:01 AST 26 U/L (0-32) 11/03/21 18:01 ALT 28 U/L (0-33) 11/03/21 18:01 Alkaline Phosphatase 69 U/L (35-105) 11/03/21 18:01 Troponin T Baseline 21 ng/L (0-10) H 11/03/21 18:01 Troponin T 120 Minute 21.44 ng/L (0-10) H 11/03/21 20:27 Delta Troponin T 0.44 ABS# (0-10) 11/03/21 20:27 Total Protein 6.6 g/dL (6.6-8.7) 11/03/21 18:01 Albumin 4.2 g/dL (3.5-5.2) 11/03/21 18:01 Globulin 2.4 g/dL (1.3-4.6) 11/03/21 18:01 EKG Data EKG 1: I personally reviewed and interpreted this EKG as follows: EKG interpretation date: 11/03/21 EKG interpretation time: 19:15 Interpretation: nsr hr [address] or t wave abnormalities qrs 93 qtc 428 Discharge Plan Discharge Patient Disposition: Home Clinical Impression: Chest pain Qualifiers: Chest pain type: unspecified Qualified Code(s): R07.9 - Chest pain, unspecified Condition: Stable Prescriptions: No Action (DME) CPAP - AUTO TITRATING 5-9CM Qty: 1 0RF Rx Instructions: As directed citalopram [Celexa] 40 mg tablet 40 mg PO DAILY Qty: 30 0RF gabapentin 300 mg capsule 300 mg PO TID Qty: 90 0RF Zyrtec 10 mg Tablet 10 mg PO DAILY meloxicam 7.5 mg Tablet 7.5 mg PO DAILY famotidine 20 mg Tablet 20 mg PO BID oxybutynin chloride 5 mg tablet extended release 24 hr 5 mg PO DAILY Discharge Orders: Discharge ED (Routine); Ordered 11/03/21 Ordered By: Armando Abad Referrals: Debbie Mcleod, PERSONAL DEVELOPMENT MENTOR [Primary Care Provider] - Discharge Diet: Advance as tolerated Discharge Activity: Resume usual activity Patient Instructions: Chest Pain (ED) Coding Level of Care Code ED Sports Physiotherapist for Chg Fwd Exam Comprehensive
[2021-11-03] MEDS: aspirin 81 mg Chew Tablet 324 MG PO (19:34)
[2021-11-03 20:59] LABS: Troponin 5 2HR 21.44 ng/L (0-10); Troponin 5 2HR Delta 0.44 ABS# (0-10)
[2021-11-03 21:48] VITALS: BP 133/68; PULSE 52; RESP 16; O2SAT 94
[2021-11-03 21:50] VITALS: BP 133/68; PULSE 52; RESP 16; O2SAT 94
--- NOTE | 2021-11-04 10:40 | DCPLANNER ---
Addendum entered by Sophie Rowan 03/06/22 14:02: Patient had a follow up appointment scheduled with [facility] - patient did attend appointment. Addendum entered by Sophie Rowan 11/05/21 14:04: Patient has a follow up appointment scheduled for , December 25, 2021 at 12:[address] Meneses at [facility]. Clinic will call patient with appointment information. Original Note: housing manager had message to schedule a follow up appointment for patient with cardiology. housing manager sent patients information to the front office staff at [facility]. Patients information will be printed and reviewed. Clinic will call patient with appointment information.
== END 2021-11-03 21:53 | disposition home or self-care (01) ==
PROVIDERS: Family Medicine; Emergency Provider Emergency Medicine; PCP Nurse Practitioner
DX: R07.9 Chest pain, unspecified (principal)
CPT/HCPCS: 71045; 80053; 84484; 85025; 93005; 99285

== ENCOUNTER 2022-06-10 08:12 | Outpatient (CLI) | payer MEDICAID, SELFPAY ==
--- NOTE | 2022-06-10 | ECG_ITS ---
[facility] Test Date: 2022-06-10 Pat Name: Jodi Santos Department: Room: Gender: Female Mutuel Department Manager: : 1970 Requested By: Paul Mneeses Order Number: [id number] Zoran MD: Paul Meneses M.D. Interpretive Statements NAME OF STUDY: LEXISCAN SESTAMIBI STRESS TEST INDICATION: [Shortness of breath; Chest Pain] Procedure: At the baseline, the blood pressure was 111/77 mmHg with a heart rate of 55 bpm. The electrocardiogram showed sinus bradycardia, normal axis with normal ST and T's. The Lexiscan was infused over a period of 20 seconds. A total of 0.4 mg of Lexiscan was infused. The stress phase was continued for a total of 5 minutes. Heart rate was at the end of stress phase was 91 bpm and a blood pressure of 138/78 mmHg. The EKG at the peak infusion revealed normal sinus rhythm with no significant ST-T wave changes.Frequent PVCs. Sestamibi was injected 20 seconds after the Lexiscan infusion. Blood pressure at the end of recovery phase was 120/79 mmHg with a heart rate of 86 bpm. Conclusion: 1. Normal EKG response to Lexiscan infusion 2. No Lexiscan induced chest pain or cardiac arrhythmia. 3. Normal blood pressure and heart rate response. 4. Sestamibi/sestamibi perfusion scan pending; see separate report. Electronically Signed On 06-14-2022 15:09:17 CDT by Paul Meneses M.D. [id number]
[2022-06-10 09:12] VITALS: BMI 24.9
--- NOTE | 2022-06-10 09:51 | NMCV_ITS ---
NM immanuel perf SPECT r/s* [id number] Jodi Santos Age: 52 Gender: F : 1970 Exam Date: 06/10/2022 09:51 Ordering Phys: Paul Meneses M.D ([email or web address]) Technologist: LOIDA Davenport Exam Location: [facility] Indications: CHEST PAIN STRESS TEST [facility] IMAGE PROTOCOL Rest/Stress 1 Lexiscan Day Radiopharmaceutical Dose (mCi) Administration Site Administered by Rest: Tc-99m 10.7 IV LOIDA Mathis Sestamibi Stress:Tc-99m 32.8 IV LOIDA Davenport Sestamigreta Rest: 10-Jun-2022 60 Discovery 630 Stress: 10-Jun-2022 30 Discovery 630 0.4mg Lexiscan. Images obtained in supine and prone position. SPECT RESULTS Technical Quality: Excellent Raw Data Analysis: Normal Image Corrections: No attenuation or motion correction applied Summed Stress Score: 6 Summed Rest Score: 3 Summed Difference Score: 5 PERFUSION FINDINGS Medium sized areas of partially reversible perfusion defects noted in anterior and anterolateral schmitz. This is consistent with medium sized area of prior infarcts with small area of clara-infarct ischemia in the LAD and left circumflex artery territories. FUNCTIONAL RESULTS (calculated via Gated SPECT) Stress Image LV EF (%): 60 Stress EDV (mL):102 TID: 1.02 Stress ESV (mL):41 FUNCTIONAL FINDINGS: There is normal left ventricular systolic function. IMPRESSIONS 1. Medium sized areas of prior infarcts noted in LAD and left circumflex artery territories with small areas of clara-infarct ischemia 2. LV systolic function is normal Paul Meneses MD (Electronically Signed) Final Date: 13 June 2022 14:17 S
[2022-06-10] MEDS: regadenoson 0.4 Mg/5 ml Syringe IVP (11:47)
[2022-06-10 12:05] VITALS: BP 126/74; PULSE 82
== END 2022-06-10 08:13 | disposition home or self-care (01) ==
LOC: CDL 08:15
PROVIDERS: PCP Nurse Practitioner; Visit Provider Internal Medicine
DX: R07.9 Chest pain, unspecified (principal); R06.02 Shortness of breath
CPT/HCPCS: 36415; 78452; 93017; 93306; 96374; A9500; J2785

== ENCOUNTER 2022-06-10 09:50 | Outpatient (CLI) | payer MEDICAID, SELFPAY ==
--- NOTE | 2022-06-10 09:52 | MM_ITS ---
WS: [id number] BILATERAL SCREENING DIGITAL TOMOSYNTHESIS MAMMOGRAM WITH CAD HISTORY: SCREENING COMPARISON: 01/31/2014 Bilateral CC and MLO views with tomosynthesis and synthetic mammography submitted. Computer aided det ection analyzed. Breast composition: The breasts are almost entirely fatty. No suspicious masses, microcalcifications or architectural distortion. MM/[place] [id number] IMPRESSION: BI-RADS: 1-Negative FOLLOW UP: 1 Year Follow-up
== END 2022-06-10 09:51 | disposition home or self-care (01) ==
LOC: RAD 09:51
PROVIDERS: PCP Nurse Practitioner; Visit Provider Nurse Practitioner
DX: Z12.31 Encounter for screening mammogram for malignant neoplasm of breast (principal)
CPT/HCPCS: 77063; 77067

== ENCOUNTER 2022-06-10 09:51 | Outpatient (CLI) | payer MEDICAID, SELFPAY ==
--- NOTE | 2022-06-10 09:00 | USCV_ITS ---
Jodi Santos Age: 52 Gender: F : 1970 Exam Date: 06/10/2022 09:09 Ordering Phys: Paul Meneses M.D Technologist: Exam Location: [facility] [place] Indication: CHEST PAIN BP: 120 / 70 HR: 64 Rhythm: Sinus Technical Quality: MEASUREMENTS (Male / Female) Normal Values 2D ECHO LV Diastolic Diameter PLAX 4.7 cm 4.2 - 5.9 / 3.9 - 5.3 cm LV Systolic Diameter PLAX 3.0 cm IVS Diastolic Thickness 1.1 cm 0.6 - 1.0 / 0.6 - 0.9 cm IVS Systolic Thickness 1.5 cm LVPW Diastolic Thickness 1.4 cm 0.6 - 1.0 / 0.6 - 0.9 cm LVPW Systolic Thickness 1.8 cm LVOT Diameter 2.0 cm LV Ejection Fraction 2D Teich 63.7 % LV Ejection Fraction MOD 2C 73.0 % LV Ejection Fraction 2C AL 72.1 % LA Diameter 4.0 cm Aorta at Sinotubular Diameter 2.5 cm IVC Diameter 1.2 cm M-MODE Aortic Annulus Diameter 3.0 cm LA Ao Ratio MM 1.4 MV E Point Septal Separation 1.1 cm DOPPLER AV Peak Velocity 129.0 cm/s LVOT Peak Velocity 96.0 cm/s AV Area Cont Eq vti 2.4 cm squared AV Area Cont Eq pk 2.4 cm squared MV Area PHT 5.0 cm squared Mitral E to A Ratio 1.0 MV E' Velocity 56.5 cm/s Mitral E to MV E' Ratio 10.4 Mitral E to LV E' Lateral Ratio 9.1 Mitral E to LV E' Septal Ratio 12.3 TR Peak Velocity 165.3 cm/s TR Peak Gradient 10.9 mmHg TV Peak E Velocity 94.0 cm/s Right Atrial Pressure 3.0 mmHg Pulmonary Artery Systolic Pressu 13.9 mmHg RV Acceleration Time 0.2 s FINDINGS Left Ventricle Left ventricle is normal in size. LV systolic function is normal with EF 60-65%. No regional wall motion abnormalities are seen. Right Ventricle Normal in size and function Right Atrium Normal in size Left Atrium Normal in size Mitral Valve Structurally normal mitral valve. No significant stenosis or regurgitation. Aortic Valve Structurally normal aortic valve. Trace aortic regurgitation. No significant stenosis. Tricuspid Valve Mild tricuspid regurgitation. Pulmonary artery systolic pressure is normal. Pulmonic Valve Not well-visualized. Pericardium Normal Aorta Normal in size IVC Appears to be normal CONCLUSIONS LV systolic function is normal with EF of 60-65%. Trace aortic regurgitation Mild tricuspid regurgitation No comparison studies are available Paul Meneses MD (Electronically Signed) Final Date: 24 June 2022 14:12 S
== END 2022-06-10 09:52 | disposition home or self-care (01) ==
LOC: RAD 09:51
PROVIDERS: PCP Nurse Practitioner; Visit Provider Internal Medicine
DX: R07.9 Chest pain, unspecified (principal)
CPT/HCPCS: 93306

== ENCOUNTER 2022-08-04 07:53 | Outpatient (CLI) | payer MEDICAID, SELFPAY ==
[2022-08-04] VITALS (17 sets, daily range): BP systolic 106–131; BP diastolic 59–91; PULSE 55–101; RESP 12–22; TEMP 36.6; O2SAT 90–99; BMI 41.1
[2022-08-04] MEDS: aspirin 325 mg Tablet PO (08:15)
[2022-08-04 08:26] LABS: Basophils % 0.1 %; Hematocrit 42.3 % (37.0-47.0); Hemoglobin 14.1 g/dL (11.5-15.3); Lymphocytes # 1.8 10^3/uL (0.8-4.8); Mean Corpuscular HGB Conc 33.3 g/dL (30.0-36.0); Mean Corpuscular Hemoglobin 28.8 pg (28.0-34.0); Mean Corpuscular Volume 86.3 fl (81-99); Mean Platelet Volume 11.3 fL (7.4-10.4); Monocytes # 0.1 10^3/uL (0.2-0.9); Neutrophils # 6.27 10^3/uL (1.8-7.7); Neutrophils % 76.4 %; Nucleated Red Blood Cells % 0 %; Platelet Count 197 10^3/cmm (130-400); Red Cell Distribution Width 13.4 % (12.1-15.1); White Blood Count 8.2 10^3/uL (4.0-10.0)
--- NOTE | 2022-08-04 08:30 | XACV_ITS ---
Exam Room: 2 Ht: 155 cm Wt: 99 kg BSA: 2.12 m2 Gender: Female : 1970 Any Known Allergies: Codeine Exam Priority: Routine Procedure(s): Procedure Description: Diagnostic procedure Procedure Description: Left Heart Catheterization Procedure Description: Left ventriculography Procedure Description: Coronary Angiography Diagnostic Cath Status: Elective Diagnostic Findings * INDICATION: Dyspnea on exertion/abnormal stress test/frequent PVCs. * No significant disease noted in the Left Main, Left Anterior Descending, Right, or Circumflex coronary arteries. * Coronary angiography shows right dominance. Conclusions 1. No significant disease noted in the Left Main, Left Anterior Descending, Right, or Circumflex coronary arteries. 2. Mild left ventricular systolic dysfunction. Ejection fraction of 45%. Recommendations * Patient has frequent PVCs. As outpatient will need uptitration of beta-blockers. Patient will bring log of blood pressure readings before medication adjustment. * Aggressive risk factor modification. * Outpatient cardiology follow up in 2 weeks. Interventional RX Recommendation: medical therapy and/or counseling Diagnostic RX Recommendation: medical therapy and/or counseling Anticoagulation: Heparin Ventriculography Ejection Fraction: 45.0 % Pressures Phase:Rest AO : 85 / 66 ( 78 ) @ 10:12:00 AM 82 / 70 ( 74 ) @ 10:14:00 AM 113 / 70 ( 89 ) @ 10:18:00 AM 111 / 72 ( 88 ) @ 10:18:00 AM LV : 117 / 1 / 13 @ 10:16:00 AM 123 / 21 @ 10:17:00 AM 123 / 21 @ 10:18:00 AM Valves Phase:DefaultPhase AV : 10.0 @ 9:25:50 AM 10.0 @ 9:25:50 AM AV Mean Gradient: 9.0 @ 9:25:50 AM 9.0 @ 9:25:50 AM Clinical Evaluation EBL: 5mL-10mL Procedural Details Procedure Consent Obtained. Pre-Procedure Time Out. Identified patient by full name and date of as verbalized by the patient/guarantor. Does the consent match the physician's order: Yes. Accurate & Complete Informed Consent: Yes. Inpatient/Outpatient History & Physical on Chart: Yes. If H&P is completed, is and addenduem needed: No; If yes, is the addendum complete: N/A. Visualize and Verify Site with Patient/Guarantor: N/A. Relevant Radiology Images available: Yes. Pre-op teaching completed and patient verbalized understanding. The risks, benefits, and alternatives of sedation and/or procedure were discussed by physician. The patient agrees to continue. Procedure started. Current Diagnosis : Chest Pain. [facility] Clinical Fraility Score: 3: Managing Well. 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 Chest Pain Symptom Assessment: Typical Angina Symptoms. Correct patient, site and procedure confirmed by cath team. Current diagnosis: Chest Pain. PERRLA. Strong, equal hand manager materials management bilaterally. Lungs clear x 5 lobes. IV Site on Arrival: 20 gauge in the left anticubital. IV Fluids: 0.9% NaCl at KVO. 0 mL infused prior to phlebotomy lab assistant. Pre Procedural Pulses: bilateral dorsalis pedis was 2+. Pre Procedural Pulses: bilateral posterior tibial was 2+. Pre Procedural Pulses: bilateral radial was 3+. Oxygen started at 2liters/min via nasal canula. right groin was prepped with chloroprep then draped in the usual sterile fashion. right radial was prepped with chloroprep then draped in the usual sterile fashion. Baseline sample Acquired. HR: 47 BPM. Physician notified. Physician arrived. Physician scrubbed in. Immediate Pre-Procedure Time Out. Correct Patient: Yes; Correct Procedure: Yes; Correct Site: Yes; Correct Patient Position: Yes; Correct Supplies: Yes; Dried Flammable Prep: Yes; Blood Products Available: N/A;. Lidocaine 1% infiltrated to the right radial. Arterial access obtained. A 5 [place] TIG catheter in over wire. Multiple views taken of left coronary artery. Catheter redirected to the RCA. Multiple views taken of right coronary artery. Catheter removed over the exchange wire. A 5 [place] Angled Pig catheter in over wire. EDP Sample taken: LV 117/1,13; HR: 56 BPM; SpO2: 92%. LV gram performed in SOARES @ 10 mL/second for a total of 30 mL. EDP Sample taken: LV 123/5,21; HR: 85 BPM; SpO2: 91%. Pullback taken: LV 123/5,21; AO 113/70(89); Mean: 9mmHg, Peak to Peak: 10mmHg, SEP: 22sec/min; HR: 88 BPM; SpO2: 92%. Catheter removed over the exchange wire. Physician review of cine films. Physician scrubbed out. A TR Band was successful obtaining hemostatsis at the Right Radial artery insertion site. Post Procedure: Pulses reassessed and unchanged. PERRLA. Strong, equal hand manager materials management bilaterally. No VTE prophylaxis required. Medication's Wasted: Lidocaine 1% = 2 mL. Medication's Wasted: Nitro = 49.8 mg. Medication's Wasted: Other = Fentanyl 50mcg Versed 1 mg. Total IV fluids: 32 mL. Post-op diagnosis: Normal Coronaries. Complications: None. Estimated blood loss: 5mL-10mL. Responsiveness - Normal response to verbal stimuli; alert and oriented, PERRLA. Airway - Unaffected, no intervention required; spontaneous ventilation. Circulation: W/N/L, pulses unchanged. Nausea/Vomiting: No. Procedure completed. Patient transferred by wheelchair to CPRU. Vital chart was stopped. Access Site Site: Right Radial artery Sheath Size: 6 Fr Hemostasis Method: TR Band Hemostasis Success: Successful Procedure Medications Start: 8:57 AM Stop: 8:57 AM Medication: Versed Amount: 1 mg Route: I.V. Start: 8:57 AM Stop: 8:57 AM Medication: Fentanyl Amount: 50 mcg Route: I.V. Start: 9:09 AM Stop: 9:09 AM Medication: Nitrogylcerin Amount: 200 mcg Route: I.A. Start: 9:11 AM Stop: 9:11 AM Medication: Heparin Amount: 5000 units Route: I.V. I, the attending physician, have reviewed and verified all procedure medications. Yes, all medications given per verbal order History/Risk Factors Hypertension: No Dyslipidemia: No Peripheral Arterial Disease (PAD): No Myocardial Infarction (MD): No Obesity: No Renal Disease: No Tobacco Use: Never Prior Interventions PCI: No CABG: No Valve Surgery: No Report Signatures Finalized by Paul Meneses MD on 08/04/2022 01:01 PM
[2022-08-04 08:45] LABS: Anion Gap 14.5 (5-19); Blood Urea Nitrogen 21 mg/dL (6-20); Calcium 9.2 mg/dL (8.5-10.5); Carbon Dioxide 25 mmol/L (22-29); Chloride 102 mmol/L (98-107); Glucose 143 mg/dL (65-115); Osmolality Calculated 289 mOsm/kg (285-295); Potassium 4.5 mmol/L (3.5-5.1); Sodium 137 mmol/L (136-145)
--- NOTE | 2022-08-04 08:56 | W.PM.OPSUD ---
Surgery/Procedure H&P Update DATE OF PROCEDURE: August 04, 2022 DATE H&P PERFORMED: 07/20/22 H&P UPDATE INFORMATION: I have reviewed H&P completed within last 30 days, I have examined patient prior to procedure and No changes to prior documentation PREOP DIAGNOSIS: Chest pain/ abnormal stress test PRIMARY INDICATION FOR PROCEDURE: Chest pain/ abnormal stress test PLANNED PROCEDURE: Operation Date: 08/04/22 08:30 Proposed Procedures p left heart cath 43007,R94.39(Left) - Paul Meneses M.D Possible percutaneous coronary intervention PATIENT REASSESSED PRIOR TO SEDATION, WITH NO CHANGE NOTED: Yes PHYSICAL EXAM: alert, oriented x 3, clear to auscultation bilaterally and regular rate & rhythm AIRWAY EVAL/ANESTHESIA PLAN: normal airway, ASA III, Local Anesthesia, Risks, benefits & alternatives of sedation and/or procedure discussed and Patient agrees to continue as planned ADDITIONAL INFORMATION: Moderate sedation
--- NOTE | 2022-08-04 09:30 | PC.NURSE ---
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 Alert and oriented X3, breathing even and non-labored on room air. Pt denies pain, complains of acid reflux. Pt placed on bedside bolt threader. TR band in place to right wrist. No signs of bleeding or hematoma noted. Pt and visitor given verbal instructions on activity restrictions and reportable signs and symptoms, verbalized understanding.
--- NOTE | 2022-08-04 09:37 | PC.NURSE ---
Dr. Meneses notified of complaints of acid reflux. Verbal orders given for one time pantoprazole 40mg IVP.
[2022-08-04] MEDS: pantoprazole 40 mg SDV IVP (09:57)
--- NOTE | 2022-08-04 12:38 | PC.NURSE ---
TR BAND REMOVAL 1030 1ml air removal from right radial TR Band. Site asymptomatic. No bleeding or hematoma noted. Radial pulse palpable. 1037 1ml air removal from right radial TR Band. Site asymptomatic. No bleeding or hematoma noted. Radial pulse palpable. 1055 2ml air removal from right radial TR Band. Site asymptomatic. No bleeding or hematoma noted. Radial pulse palpable. 1105 2ml air removal from right radial TR Band. Site asymptomatic. No bleeding or hematoma noted. Radial pulse palpable. 1110 2ml air removal from right radial TR Band. Site asymptomatic. No bleeding or hematoma noted. Radial pulse palpable. 1130 2ml air removal from right radial TR Band. Site asymptomatic. No bleeding or hematoma noted. Radial pulse palpable. 1145 2ml air removal from right radial TR Band. Band deflated. Site asymptomatic. No bleeding or hematoma noted. Radial pulse palpable. 1200 Right wrist cleaned and applied large bandaid. No signs of bleeding or hematoma.
--- NOTE | 2022-08-04 13:10 | PC.NURSE ---
Patient Discharged Verbal and Handout instructions given to patient. Pt verbalized understanding of instructions. Right wrist dressing clean, dry, and asymptomatic. Pt escorted to private vehicle via wheelchair. 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
== END 2022-08-04 13:12 | disposition home or self-care (01) ==
PROVIDERS: PCP Nurse Practitioner; Visit Provider Internal Medicine
DX: R07.9 Chest pain, unspecified (principal); R94.39 Abnormal result of other cardiovascular function study; I49.3 Ventricular premature depolarization
CPT/HCPCS: 36415; 80048; 85025; 93458; 96361; 96365; 99152; 99153; C1769; C1887; C1894; C9113; J1644; J2250; J3010; J3490; J7030; Q9967

== ENCOUNTER 2022-08-17 09:12 | Outpatient (CLI) | payer MEDICAID, SELFPAY | END 2022-08-17 09:13 | disposition home or self-care (01) | PROVIDERS: PCP Nurse Practitioner; Visit Provider Nurse Practitioner Family | DX: I49.3 Ventricular premature depolarization (principal) | CPT/HCPCS: 36415; 80048 ==

== ENCOUNTER 2022-10-22 13:00 | Outpatient (CLI) | payer MEDICAID, SELFPAY | END 2022-10-22 13:01 | disposition home or self-care (01) | LOC: SLEEP 10-26 10:02 | PROVIDERS: PCP Nurse Practitioner; Visit Provider Nurse Practitioner Family | DX: I49.3 Ventricular premature depolarization (principal); G47.33 Obstructive sleep apnea (adult) (pediatric); G40.319 Generalized idiopathic epilepsy and epileptic syndromes, intractable, without status epilepticus; R07.9 Chest pain, unspecified | CPT/HCPCS: G0399 ==

== ENCOUNTER 2023-11-29 11:01 | Outpatient (CLI) | payer OTHER, SELFPAY ==
--- NOTE | 2023-11-29 11:03 | MM_ITS ---
WS: [id number] BILATERAL SCREENING DIGITAL TOMOSYNTHESIS MAMMOGRAM WITH CAD HISTORY: SCREENING COMPARISON: 06/10/2022, 01/31/2014 Bilateral CC and MLO views with tomosynthesis and synthetic mammography submitted. Computer aided det ection analyzed. Breast composition: The breasts are almost entirely fatty. No suspicious masses, microcalcifications or architectural distortion. Benign calcifications in each breast. MM/MM scr BI tomosynthesis [id number] IMPRESSION: BI-RADS: 2 - Benign. FOLLOW UP: 1 Year Follow-up
== END 2023-11-29 11:02 | disposition home or self-care (01) ==
LOC: RAD 11:01
PROVIDERS: PCP Nurse Practitioner; Visit Provider Nurse Practitioner
DX: Z12.31 Encounter for screening mammogram for malignant neoplasm of breast (principal)
CPT/HCPCS: 77063; 77067